=== PATIENT | male | born 1945 | race Caucasian/White ===

== ENCOUNTER 2024-10-03 13:52 | Emergency (ER) | payer MEDICARE ==
[2024-10-03] MEDS ORDERED: Sodium Chloride 0.9% 10 ML Syringe FLUSH PRN (14:07)
[2024-10-03 14:20] LABS: BASOPHILS PERCENT AUTO 0.1 % (0.1-1.3); EOSINOPHILS PERCENT AUTO 0.0 % (0.0-5.4); IMMATURE GRAN ABSOLUTE AUTO 0.24 K/uL (0.00-0.23); IMMATURE GRAN PERCENT AUTO 1.4 % (0.0-0.7); LYMPHOCYTES ABSOLUTE AUTO 0.44 K/uL (0.8-3.3); LYMPHOCYTES PERCENT AUTO 2.6 % (11.4-47.7); MONOCYTES ABSOLUTE AUTO 1.01 K/uL (0.20-0.90); MONOCYTES PERCENT AUTO 5.9 % (3.3-12.6); NEUTROPHILS ABSOLUTE AUTO 15.47 K/uL (1.0-7.6); NEUTROPHILS PERCENT AUTO 90.0 % (40.0-78.1); PLATELET COUNT,PLT 366 K/uL (130-375); RED BLOOD CELL COUNT 2.82 M/uL (4.14-5.76); WHITE BLOOD CELL COUNT,WBC 17.2 K/uL (3.2-11.0)
[2024-10-03 14:30] LABS: BASOPHILS ABSOLUTE AUTO 0.01 K/uL (0.00-0.10); EOSINOPHILS ABSOLUTE AUTO 0.00 K/uL (0.00-0.40)
[2024-10-03 14:36] LABS: CHLORIDE,CL 101 mmol/L (100-108); GLUCOSE RANDOM 129 mg/dL (74-106); SODIUM,NA 138 mmol/L (140-148)
[2024-10-03 14:57] LABS: CARBON DIOXIDE,CO2 9 mmol/L (21-32); POTASSIUM,K 7.7 mmol/L (3.6-5.2)
[2024-10-03 14:58] LABS: BLOOD UREA NITROGEN,BUN 222 mg/dL (7-18); CREATININE > 20.0 mg/dL (0.8-1.3); EST CRCL DRUG DOSING (CG) 2.64 mL/min
[2024-10-03] MEDS ORDERED: 50% Dextrose in Water 50 ML Syringe IVPUSH PRN (15:02)
[2024-10-03 15:08] LABS: LACTIC ACID 0.9 mmol/L (0.4-2.0)
[2024-10-03] MEDS: Albuterol 0.083% 2.5 MG/3 ML Neb Soln NEB ONE (15:20)
[2024-10-03] MEDS: 50% Dextrose in Water 50 ML Syringe IVPUSH ONE (15:20)
[2024-10-03] MEDS: Calcium Gluconate 10% 1 GM/10 ML SDV IVPUSH ONE (15:20)
[2024-10-03] MEDS: Insulin Regular, Human 100 Units/ML 10 ML Vial SUBCUT ONE (15:29)
[2024-10-03 17:14] VITALS: BP 117/69; PULSE 107
== END 2024-10-03 17:50 ==
LOC: EDBD 13:52 → JP.ED 13:52 → MERGE 13:52 → JP.ED 17:50
DX: N19 Unspecified kidney failure (principal)
CPT/HCPCS: 36415; 51702; 71250; 74176; 80048; 82272; 82550; 83605; 84132; 85025; 86140; 93005; 94640; 96365; 96366; 96374; 96375; 99285; A9270; J0612; J7030; J7070; 93010; J3490

== ENCOUNTER 2024-11-09 14:40 | Emergency (ER) | payer MEDICARE ==
[2024-11-09 16:37] LABS: BASOPHILS ABSOLUTE AUTO 0.02 K/uL (0.00-0.10); BASOPHILS PERCENT AUTO 0.2 % (0.1-1.3); EOSINOPHILS ABSOLUTE AUTO 0.25 K/uL (0.00-0.40); EOSINOPHILS PERCENT AUTO 2.3 % (0.0-5.4); IMMATURE GRAN ABSOLUTE AUTO 0.04 K/uL (0.00-0.23); IMMATURE GRAN PERCENT AUTO 0.4 % (0.0-0.7); LYMPHOCYTES ABSOLUTE AUTO 1.11 K/uL (0.8-3.3); LYMPHOCYTES PERCENT AUTO 10.4 % (11.4-47.7); MONOCYTES ABSOLUTE AUTO 0.83 K/uL (0.20-0.90); MONOCYTES PERCENT AUTO 7.7 % (3.3-12.6); NEUTROPHILS ABSOLUTE AUTO 8.47 K/uL (1.0-7.6); NEUTROPHILS PERCENT AUTO 79.0 % (40.0-78.1); PLATELET COUNT,PLT 235 K/uL (130-375); RED BLOOD CELL COUNT 3.27 M/uL (4.14-5.76); WHITE BLOOD CELL COUNT,WBC 10.7 K/uL (3.2-11.0)
[2024-11-09 16:57] LABS: A/G RATIO 0.8 (1.2-2.2); ALANINE AMINOTRANSFERASE,ALT 25 U/L (12-78); ASPARTATE AMNIOTRANSFERASE,AST 14 U/L (15-37); BILIRUBIN TOTAL 0.2 mg/dL (0.2-1.0); BLOOD UREA NITROGEN,BUN 72 mg/dL (7-18); CARBON DIOXIDE,CO2 22 mmol/L (21-32); CHLORIDE,CL 109 mmol/L (100-108); CREATININE 2.9 mg/dL (0.8-1.3); EST CRCL DRUG DOSING (CG) 15.49 mL/min; ESTIMATED GFR 21 mL/min (>60); GLUCOSE RANDOM 84 mg/dL (74-106); POTASSIUM,K 5.0 mmol/L (3.6-5.2); PROTEIN TOTAL,TP 7.0 g/dL (6.4-8.2); SODIUM,NA 139 mmol/L (140-148)
[2024-11-09 17:56] VITALS: BP 109/78; PULSE 100
== END 2024-11-09 18:37 | disposition home or self-care (01) ==
LOC: JP.ED 14:40
DX: J44.1 Chronic obstructive pulmonary disease with (acute) exacerbation (principal); Z79.899 Other long term (current) drug therapy; Z79.51 Long term (current) use of inhaled steroids; Z88.0 Allergy status to penicillin
CPT/HCPCS: 36415; 71046; 80053; 85025; 85379; 94640; 99285; A9270